=== PATIENT | female | born 1970 | race Two or more races ===

== ENCOUNTER 2022-06-15 11:09 | Emergency (ER) | payer MEDICAID, OTHER ==
[~2022-06-15] VITALS: Ht 170.2 cm; Wt 138.8 kg
[2022-06-15 14:35] VITALS: BP 173/83
[2022-06-15] MEDS ORDERED: ALBUTEROL SULF 2.5 MG/0.5ML(0.5%) NEB SOLN NEB ONE (15:45)
[2022-06-15] MEDS ORDERED: ALBU108A5 IN (18:01)
[2022-06-15] MEDS ORDERED: ACET-1158 PO (18:01)
[2022-06-15] MEDS ORDERED: LORA-483 GT (18:01)
[2022-06-15] MEDS ORDERED: BENZ100C19 PO (18:01)
== END 2022-06-15 19:27 | disposition home or self-care (01) ==
LOC: ER 11:09
DX: J06.9 Acute upper respiratory infection, unspecified (principal); Z20.822 Contact with and (suspected) exposure to COVID-19
CPT/HCPCS: 36415; 87426; 87804; 94640